=== PATIENT | male | born 1945 | race Caucasian/White ===

== ENCOUNTER 2016-12-20 09:53 | Day surgery (SDC) | payer MEDICARE, OTHER ==
--- NOTE | 2016-12-19 15:16 | PCM.ANEPRE ---
Anesthesia Pre-Op Review Reason for Review: CARDIAC HX NO FOLLOWUP IN 9-10 MONTHS;6MO RECOMMENDED Anesthesia Recommendations: Proceed with Procedure Additional Comments 71 year old male for TURP with hx of M.I., s/p heart cath in 2014 and A flutter ablation in 2014. capable of greater than 4 METs. Rec routine Follow up per cardiology in 6mo on 03/2016, however, seems reasonable to proceed assuming no change in health. Ultimate decision to be made by anesthesiologist day of surgery. Alexx Diggs MD Dec 19, 2016 15:15
[2016-12-20] VITALS (7 sets, daily range): BP systolic 98–129; BP diastolic 60–73; PULSE 59–65; RESP 13–17; O2SAT 94–99
[~2016-12-20] VITALS: Ht 180.3 cm; Wt 94.3 kg
[~2016-12-20 09:53] MED LIST: ALBU8.5H2 INHALATION; ASPI-973 PO; BECL8.7A5 INHALATION; CLOP75TA3 PO; DOCU240C41 PO; HYDR25TA4 PO; LIP40 PO; Levofloxacin 500 mg/100 mL D5W IV ONE; MELA1TAB21 PO; METO-272 PO; NITR0.4T SL; SULF1TAB7 PO; TAMS0.4C29 PO; TIOT18CA3 IH; TRAZ-115 PO; buspirone; calcitriol
[2016-12-20] MEDS ORDERED: MetoCLOpramide 5 mg/mL 2 mL Inj ONE (09:54)
[2016-12-20] MEDS ORDERED: Lidocaine PF 1% 30 mL Inj ONE (09:54)
[2016-12-20] MEDS ORDERED: Dexamethasone 4 mg/mL Inj ONE (09:54)
[2016-12-20] MEDS ORDERED: Propofol 10,000 mCg/mL 20 mL Inj ONE (09:54)
[2016-12-20] MEDS ORDERED: Ondansetron 2 mg/mL 2 mL Inj ONE (09:54)
[2016-12-20] MEDS ORDERED: BUPR75TA10 PO (10:22)
[2016-12-20] MEDS: Lactated Ringer's 1,000 ML IV SCH ×2 (10:57→12:23)
[2016-12-20] MEDS ORDERED: levoFLOXacin 500 mg/100 mL D5W Premix IV ONE (11:39)
[2016-12-20] MEDS ORDERED: Lactated Ringer's 500 ML IV PRN (12:46)
[2016-12-20] MEDS ORDERED: Lactated Ringer's 1,000 ML IV SCH (12:46)
[2016-12-20] MEDS ORDERED: MetoCLOpramide 5 mg/mL 2 mL Inj IVPUSH PRN (12:50)
[2016-12-20] MEDS ORDERED: Phenylephrine 10,000 mCg/mL Inj IVPUSH PRN (12:50)
[2016-12-20] MEDS ORDERED: EPHEDrine Sulfate 50 mg/mL Inj IVPUSH PRN (12:50)
[2016-12-20] MEDS ORDERED: Ondansetron 2 mg/mL 2 mL Inj IVPUSH PRN (12:50)
[2016-12-20] MEDS ORDERED: Dexamethasone 4 mg/mL Inj IVPUSH PRN (12:50)
[2016-12-20] MEDS ORDERED: HYDROmorphone 1 mg/mL Inj IVPUSH PRN (12:50)
[2016-12-20] MEDS: fentaNYL-PF 50 mCg/mL 2 mL Inj IVPUSH PRN ×2 (13:17→13:23)
[2016-12-20] MEDS ORDERED: HYDROcodone-APAP 5-325 mg Tablet PO ONE (14:17)
--- NOTE | 2016-12-20 14:22 | OP ---
[address] [address] OPERATIVE REPORT PATIENT: DELONTE SALAZAR : 1945 MR#: [id number] ADMIT: 12/20/2016 JOB ID: [id number] DATE OF SURGERY: 12/20/2016 PREOPERATIVE DIAGNOSIS(ES): Urinary retention. POSTOPERATIVE DIAGNOSIS(ES): Urinary retention. PROCEDURE PERFORMED: 1. Cystoscopy and transurethral resection of prostate. 2. Cystolithotomy. SURGEON: Lawanda Cortez MD. VBA DEVELOPER: None. FINDINGS: 1. Small prostate gland. 2. Multiple stones within the prostate as well as the bladder. ANESTHESIA: General. ESTIMATED BLOOD LOSS: Less than 5 mL. DRAINS: An 18-[place]an coude catheter in the bladder. SPECIMENS: Prostate chips and bladder stones. COMPLICATIONS: None. CONDITION: Stable. INDICATION FOR PROCEDURE: The patient is a 71-year-old man with urinary retention. He now presents for transurethral resection of prostate. DESCRIPTION OF THE PROCEDURE: After informed consent was obtained, patient was taken to the operating room. A time-out was performed identifying correct patient, surgical site, and procedure. General anesthesia was smoothly induced. He was placed in the lithotomy position. All pressure points were identified and appropriately padded. He was given intravenous antibiotics just prior to start of procedure. His genitals were then prepped and draped in the usual sterile fashion. A 26-[place]an resectoscope was then placed in the patient's urethra and advanced to the bladder under direct vision. The bladder was systematically inspected. It was trabeculated. There were numerous bladder stones, some quite small at a few millimeters and another appearing just under a centimeter. The ureteral orifices were seen in orthotopic position. The stones were removed through the resectoscope and with the loop to remove every bit of stone. Resection then commenced at the 6 o'clock position at the bladder neck to just proximal to the verumontanum. Resection commenced in piecemeal fashion from the right lobe and then the left lobe, leaving a nice open channel. The ureteral orifices were identified again at the end of the procedure and left as undisturbed. All the chips and bladder stones had been removed. There should be a note mentioned that there were also stones within the prostate that had been removed during the resection as well. The patient was then reversed from general anesthesia and taken to PACU in good and stable condition. JO
--- NOTE | 2016-12-20 18:14 | PCM.HPANE ---
Patient Data Date of Service: Dec 20, 2016 (3705) Surgeon Admitting Provider: Attending Provider:Lawanda Cortez MD Primary Care Physician:Amari Guaman MD Other Provider:Mayelin Pollack Anesthesia Reason for Visit Cystoscopy, Turp With Thunderbeat Ht/WT & BMI Height (Feet): 5 Height (Inches): 11 Weight (Kilograms): 94.3 Body Mass Index 29.00 Allergies Coded Allergies: No Known Allergies (Unverified , 12/19/16) Past Anesthesia History Anesthesia History: Denies:: Anesthesia Reactions, Malignant Hyperthermia Diabetes History Hx Diabetes?: No MRSA MRSA: No Medications Blood Thinner: Aspirin, Plavix Hypertension Medication: Yes (HCTZ) Home Meds Incl Beta Richard: Yes Date Beta Richard Taken: Dec 20, 2016 Time Beta Richard Taken: 0800 Reported Medications Bupropion 75 Mg TabletUnknown Dose PO DAILY Ref 0 12/20/16 Aspirin 81 Mg Htsxsq08 Mg PO DAILY Ref 0 12/19/16 Trazodone 50 Mg Blgwiy84 Mg PO BID PRN For Pain Ref 0 10/04/16 Tamsulosin ER 0.4 Mg Cap.er.24h0.4 Mg PO DAILY Ref 0 10/04/16 Docusate Calcium (Stool Softener)240 Mg Widjgxd399 Mg PO DAILY PRN For Constipation 10/04/16 Beclomethasone Dipropionate (Qvar)8.7 Gm Aer.w.adap2 Puff INHALATION BID #8.7 GM 10/04/16 Nitroglycerin SL (Nitrostat)0.4 Mg Tab.subl0.4 Mg SL Q5MIN PRN For Chest Pain # 1 BOTTLE 10/04/16 Metoprolol Succinate ER 50 Mg Tab.er.24h50 Mg PO BID Ref 0 10/04/16 Melatonin/Pyridoxine HCl (B6) (Melatonin 10 mg Tablet)1 Each Tab.mphase2 Each PO HS 10/04/16 Hydrochlorothiazide 25 Mg Kdvefn22 Mg PO DAILY 30 Days Ref 0 10/04/16 Clopidogrel Bisulfate (Plavix)75 Mg Bjdihe44 Mg PO DAILY 30 Days Ref 0 10/04/16 [calcitriol] No Conflict Check0.5 Mcg DAILY 10/04/16 [buspirone] No Conflict CheckUnknown Dose BID 10/04/16 Atorvastatin (Lipitor)40 Mg Pgbnbh44 Mg PO DAILY Ref 0 10/04/16 Discontinued Reported Medications Sulfamethoxazole/Trimeth 800-160 mg (Bactrim DS)1 Each Tablet1 Tablet PO BID Ref 0 12/19/16 Tiotropium [place] (Spiriva)18 Mcg Cap.w.dev18 Mcg IH DAILY #1 PKG Ref 0 10/04/16 Albuterol HFA (Proair HFA)8.5 Gm Hfa.aer.ad2 Puffs INHALATION Q4H PRN For Shortness of Breath #1 INHALER 10/04/16 oxyCODONE 5 Mg Capsule5 Mg PO Q6H PRN For Pain Ref 0 10/04/16 Magnesium Oxide 400 Mg Rhdazm159 Mg PO BID 10/04/16 History History of ENT Problems?: No Hx of Heart Problems?: Yes Cardiovascular History: Positive for:: Atrial Fibrillation (HX A FLUTTER s/p ablation) Cardiac Surgery (Stent placed 04/2015, atr flutter ablation 08/2015) Chest Pain (NSTEMI 04/2015 HX CHILDHOOD PERICARDITIS) Coronary Artery Disease (NSTEMI 04/2015 s/p DORETHA 04/2015) Hypertension (HYPERLIPIDEMIA) Irregular Heartbeat (Aflutter W/ HX OF SYNCOPE) Denies:: Congestive Heart Failure Edema Heart Murmur (ECHO 04/2015,08/2015 EF 55-60%) Pacemaker Thrombophlebitis Valvular Heart Disease Other Cardiac History: DORETHA x1 04/2015 after NSTEMI, no continued CP like the episode experienced in 2014, no use of nitroglycerin ever; h/o syncope Hx of Respiratory Problem?: Yes Respiratory History: Positive for:: COPD (PULM. NOTE/PFT 07/2013 SHOWS MILD OBSTRUCTIVE DISEASE) Dyspnea Pneumonia (Early 20s) Use of Inhalers / NEBS Denies:: Asthma Chest Surgery Emphysema Hemoptysis Oxygen Administration Tuberculosis Use of C-PAP Machine Other Resp Pertinent History: tobacco dependence now Ecigs p6wks; VALDEZ Hx Neurologic Problems?: Yes Neurological History: Positive for:: Dizziness (HX OF SYNCOPE) Denies:: CVA Multiple Sclerosis Parkinson's Disease Seizures Other Neurological Pertinent: bilat carotid artery disease Hx of GI Problems?: Yes Gastrointestinal History: Positive for:: Gastroesphageal Reflux Heartburn Denies:: Diverticulitis Gastrointestinal Bleeding Hepatitis Hiatal Hernia Rectal Bleeding (HX COLON POLYPS) Other GI Pertinent History: S/P RT INGUINAL HERNIA RPR,APPY Hx of Problems?: Yes Genitourinary History: Positive for:: Urinary Tract Infection (CURRENTLY BEING TX W/ BACTRIM DS) Denies:: HX of Hemodialysis Kidney Stones HX of Peritoneal Dialysis: No Other Pertinent History: PT HAS HX OF INDWELLING SERRANO FOR URINARY RETENTION ED Male Hx: Positive for:: Prostate Problems (HX PROSTATE CA BPH/LUTS= CURRENT PROBLEM) Denies:: Scrotal Mass Testicular Surgery Skin History: Denies:: History Skin Disorders? Pressure Ulcers Hx Musculoskeletal Problems?: Yes Musculoskeletal History: Positive for:: Back Injury Denies:: Musculoskeletal Trauma Hx of Psycho/Social Problems?: Yes Psycho Social History: Positive for:: Anxiety Hx Depression Denies:: Bipolar Disorder Suicide Attempt Hx Surgeries?: Yes (Prostate cancer, hernia repair,APPY,HEART CATH) Hx Any Other Health Problems?: Yes Other History: Positive for:: Cancer (Prostate) Hospitalization (Prostate cancer, hernia repair, pericarditis as child) Denies:: Endocrine Disease Thyroid Disease History Blood Transfusions: Denies:: Blood Transfusions Hx Diabetes: No Hx Alcohol Use: YesAlcoholic Drinks Per Day: >6 HARD DRINKS/DAYHx Substance Use: No Smoking Status: Current Every Day Smoker Have You Smoked inLast 12 mo: Yes (CIGARETTES & E-CIG.)Approx How Many Cigarettes/day: 1.5PPD Stop/Bang Treated for Sleep Apnea?: Yes Do You Have a CPAP Machine?: Yes S-Snoring: Do You Snore Loudly: No T-Tired: feel tired, fatigued: No O-Obsered: Observed not breath: No P-Blood Pressure: treated: Yes B- Body Mass Index > 35 kg/m2: No A- Age over 50: Yes N- Neck Large Circumference: No G- Gender Male: Yes VALDEZ Total Score: 3 VALDEZ Category 1: Yes Risk Assessment Category Category 1A: Patient has history of documented sleep apnea, and HAS NOT received any narcotic, sedative or anesthesia administration during this stay. Category 1B: Patient has history of documented sleep apnea, and HAS received any narcotic , sedative or anesthesia administration during this stay Category 2: Patient has SUSPECTED Obstructive Sleep Apnea, and HAS received any narcotic , sedative or anesthesia administration during this stay. Category 3: Patient has SUSPECTED Obstructive Sleep Apnea and HAS NOT received narcotic, sedative or anesthesia administration during this stay. Category 4: Outpatient in Procedural Areas with known sleep apnea or who screen positive for High Risk via the STOP/BANG questionnaire. Exam Exam Vital Signs Vital Signs Date Time Temp Pulse Resp B/P Pulse Ox O2 Delivery O2 Flow Rate FiO2 12/20/16 13:34 36.5 59 16 98/64 94 Room Air 12/20/16 13:20 60 17 118/65 97 Room Air 12/20/16 13:15 36.6 60 17 113/60 96 Room Air 12/20/16 13:10 61 16 113/73 96 Room Air 12/20/16 13:05 61 13 121/69 98 Room Air 12/20/16 13:00 36.2 65 13 129/72 99 Simple Mask 8 12/20/16 10:36 36.4 65 14 114/69 95 Room Air General Appearance: Alert, Oriented X3, Cooperative, No Acute Distress HEENT/AIRWAY: MP 3, Neck Movement (FROM), Mouth Opening (3), Other (TMD3) Lungs: Diminished Heart: Exam Unremarkable, Regular Rate/Rhythm, Normal S1, Normal S2, No Murmurs /Rubs/Gallops Meds/Labs/Diagnostics Admission Meds Current Medications Lactated Ringer's 1,000 ml @ 120 mls/hr Q8H20M IV Last administered on 12:23; Start 12/20/16 at 05:00; Stop 12/20/16 at 13:30; Status DC Levofloxacin/ Dextrose/Premix (Levaquin Inj/IV Premix) 100 ml @ 100 mls/hr ONCE ONCE IV Last administered on 12/20/16 12:37; Start 12/20/16 at 06:00; Stop 12/20/16 at 06:59; Status DC Acetaminophen/ Hydrocodone Bitart ([place] 5-325) 1 tablet STK-MED ONCE PO Last administered on 12/20/16 14:38; Start 12/20/16 at 14:17; Stop 12/20/16 at 14:18; Status DC Plan Impression Patient chart reviewed, patient interviewed and anesthestic plan with risks, benefits, and alternatives discussed, and informed consent obtained. NPO Status: 0800 12/20/16 ASA Physical Status: ASA3 Severe Disease Anesthetic Plan: GA Bene/Risks/Altern/Consents: Yes HP Complete Prior to Induction: Yes Michele Carmichael MD Dec 20, 2016 18:14
--- NOTE | 2016-12-20 18:15 | PCM.ANEP2 ---
Post Anesthesia Evaluation ASA/CMS Post Anesthesia VS in Patient's Normal Range?: Yes Resp Stable; Airway Patent?: Yes CV Function & Hydration Stable: Yes Mental Status Recovered?: Yes Pain control Satisfactory?: Yes N/V Control Satisfactory?: Yes Michele Carmichael MD Dec 20, 2016 18:15
--- NOTE | 2016-12-20 18:15 | PCM.ANEP1 ---
Post Anesthesia Phase 1 PACU Phase 1 Assessment Date of Service: Dec 20, 2016 (1215) Vital Signs Vital Signs Date Time Temp Pulse Resp B/P Pulse Ox O2 Delivery O2 Flow Rate FiO2 12/20/16 13:34 36.5 59 16 98/64 94 Room Air 12/20/16 13:20 60 17 118/65 97 Room Air 12/20/16 13:15 36.6 60 17 113/60 96 Room Air 12/20/16 13:10 61 16 113/73 96 Room Air 12/20/16 13:05 61 13 121/69 98 Room Air 12/20/16 13:00 36.2 65 13 129/72 99 Simple Mask 8 12/20/16 10:36 36.4 65 14 114/69 95 Room Air Anesthetic Administered: GA Level of Alertness: Awake, talking [place]'s with Equal Strength: Yes Pain: No Pain Scale Score: 0 Nausea or Vomiting: No Airway Device: Oralpharangeal Airway Oxygen Delivery: Simple Mask Lungs: Diminished Michele Carmichael MD Dec 20, 2016 18:15
--- NOTE | 2016-12-23 16:10 | PATH ---
SURGICAL PATHOLOGY Attending Physician:Lawanda Cortez, CASE STATUS: Signed Out PATIENT NAME: DELONTE SALAZAR JR PID: [id number] : 1945 DATE COLLECTED:12/20/2016 21:05 SPECIMEN: Prostate, Chips CLINICAL HISTORY: URINARY RETENTION 1). RESECTED PROSTATE CHIPS WITH BLADDER STONE/NO ANALYSIS ON STONE FINAL DIAGNOSIS: Prostate, Transurethral Resection (1.9 grams): Prostatic adenocarcinoma (acinar, not otherwise specified). -[place] pattern: 3 + 3 = 6. -Grade group: 1. -Involves approximately 15% of tissue and is present in 5 of 28 fragments. -No evidence of lymphovascular invasion or perineural invasion. ICD10: C61 GROSS DESCRIPTION: The specimen is received in formalin, labeled with the patient's name, sublabeled as resected prostate chips and bladder stone and consists of multiple fragments of graff-pink rubbery prostatic tissue (1.9 g, 2.7 x 2.2 x 0.5 cm in aggregate) and multiple myles hard irregular calculi (0.7 x 0.4 x 0.1 cm in aggregate, ranging 0.1 x 0.1 x 0.1 cm-0.4 x 0.3 x 0.1 cm). Section code: (A) prostatic tissue, entirely submitted. Note: The calculi are not submitted for analysis. 12/21/16 ICD-9 CODES: CPT CODES: 1: 50449 Electronically Signed Out Katharine Nguyen MD [facility] [address], [place] [address] Technical component performed at [facility], [facility] [address], [place], [address]
== END 2016-12-20 23:59 | disposition home or self-care (01) ==
LOC: SAS 09:53
PROVIDERS: ATTEND Urology
DX: N40.1 Benign prostatic hyperplasia with lower urinary tract symptoms (principal); R33.9 Retention of urine, unspecified; N21.0 Calculus in bladder; I25.10 Atherosclerotic heart disease of native coronary artery without angina pectoris; I10 Essential (primary) hypertension; E78.5 Hyperlipidemia, unspecified; E78.00 Pure hypercholesterolemia, unspecified; K21.9 Gastro-esophageal reflux disease without esophagitis; J44.9 Chronic obstructive pulmonary disease, unspecified; G47.33 Obstructive sleep apnea (adult) (pediatric); F17.210 Nicotine dependence, cigarettes, uncomplicated; F41.9 Anxiety disorder, unspecified; F32.9 Major depressive disorder, single episode, unspecified; I48.92 Unspecified atrial flutter; Z86.73 Personal history of transient ischemic attack (TIA), and cerebral infarction without residual deficits; Z79.82 Long term (current) use of aspirin; Z79.02 Long term (current) use of antithrombotics/antiplatelets; Z95.5 Presence of coronary angioplasty implant and graft; Z85.46 Personal history of malignant neoplasm of prostate
CPT/HCPCS: 52601; 88305; J1100; J2250; J2405; J2765; J3010; J7120